=== PATIENT | male | born 1945 | race Caucasian/White ===

== ENCOUNTER → 2016-10-20 | Outpatient (REF) | payer MEDICARE, BC | LOC: M SFHCPLAZ 15:32 | PROVIDERS: ATTEND Dermatology | DX: C44.529 Squamous cell carcinoma of skin of other part of trunk (principal) | CPT/HCPCS: 11100; 11101; 88305; G0463 ==

== ENCOUNTER → 2016-11-22 | Outpatient (REF) | payer MEDICARE, BC ==
[2016-11-22 16:58] LABS: ALBUMIN 3.6 GM/DL (3.2-5.2); BILIRUBIN,TOTAL 0.4 MG/DL (0.2-1.0); CALCIUM LEVEL 8.6 MG/DL (8.8-10.2); CREATININE FOR GFR 9.48 MG/DL (0.70-1.30); GLOMERULAR FILTRATION RATE 5.9 (>49); TOTAL PROTEIN 7.2 GM/DL (6.4-8.2)
[2016-11-22 17:09] LABS: POTASSIUM SERUM 5.4 MEQ/L (3.5-5.1)
[2016-11-22 17:47] LABS: MEAN CORPUSCULAR HGB CONC 32.1 g/dl (32.0-36.5); MEAN CORPUSCULAR VOLUME 99.6 fl (80.0-96.0); RED CELL DISTRIBUTION WIDTH 15.5 % (11.5-14.5); WHITE BLOOD COUNT 6.7 K/mm3 (4.0-10.0)
== END ==
LOC: M SFHCPLAZ 11:59
PROVIDERS: ATTEND Dermatology
DX: Z51.81 Encounter for therapeutic drug level monitoring (principal); Z79.52 Long term (current) use of systemic steroids; Z79.4 Long term (current) use of insulin; Z79.899 Other long term (current) drug therapy
CPT/HCPCS: 36415; 80053; 80061; 85027; G0463

== ENCOUNTER → 2016-12-06 | Outpatient (REF) | payer MEDICARE, BC | LOC: M LAB REF 11:15 | PROVIDERS: ATTEND Surgery | DX: D04.5 Carcinoma in situ of skin of trunk (principal) ==

== ENCOUNTER → 2016-12-29 | Outpatient (REF) | payer MEDICARE, BC | LOC: M SFHCPLAZ 15:42 | PROVIDERS: ATTEND Dermatology | DX: C44.629 Squamous cell carcinoma of skin of left upper limb, including shoulder (principal) | CPT/HCPCS: 11100; 88305; G0463 ==

== ENCOUNTER → 2017-02-09 | Outpatient (REF) | payer MEDICARE, BC | LOC: M SFHCPLAZ 11:29 | PROVIDERS: ATTEND Dermatology | DX: C44.622 Squamous cell carcinoma of skin of right upper limb, including shoulder (principal); C44.629 Squamous cell carcinoma of skin of left upper limb, including shoulder | CPT/HCPCS: 11100; 11101; 88305; G0463 ==

== ENCOUNTER → 2017-02-14 | Outpatient (REF) | payer MEDICARE, BC | LOC: M LAB REF 11:15 | PROVIDERS: ATTEND Surgery | DX: L57.0 Actinic keratosis (principal) ==

== ENCOUNTER → 2017-04-13 | Outpatient (REF) | payer MEDICARE, BC | LOC: M SFHCLERA 11:31 | PROVIDERS: ATTEND Dermatology | DX: L02.414 Cutaneous abscess of left upper limb (principal); L85.9 Epidermal thickening, unspecified; C44.629 Squamous cell carcinoma of skin of left upper limb, including shoulder; C44.622 Squamous cell carcinoma of skin of right upper limb, including shoulder; L57.0 Actinic keratosis ==

== ENCOUNTER → 2017-05-08 | Outpatient (REF) | payer MEDICARE, BC | LOC: M SFHCLERA 11:14 | PROVIDERS: ATTEND Dermatology | DX: L57.0 Actinic keratosis (principal); C44.622 Squamous cell carcinoma of skin of right upper limb, including shoulder ==

== ENCOUNTER → 2017-05-11 | Outpatient (REF) | payer MEDICARE, BC | LOC: M LAB REF 13:58 | PROVIDERS: ATTEND Surgery | DX: C44.629 Squamous cell carcinoma of skin of left upper limb, including shoulder (principal); C44.622 Squamous cell carcinoma of skin of right upper limb, including shoulder ==

== ENCOUNTER → 2017-08-07 | Outpatient (REF) | payer MEDICARE, BC ==
[2017-08-07 20:47] LABS: BASO % 0.3 % (0.0-1.0); EOS # 0.2 10^3/uL (0.0-0.50); EOS % 2.6 % (0.0-3.0); IMMATURE GRANULOCYTE % 0.4 % (0-0); LYMPH # 1.7 10^3/uL (1.5-4.5); LYMPH % 23.9 % (24.0-44.0); MEAN CORPUSCULAR HEMOGLOBIN 30.1 pg (27.0-33.0); MEAN CORPUSCULAR HGB CONC 30.5 g/dl (32.0-36.5); MEAN CORPUSCULAR VOLUME 98.5 fl (80.0-96.0); MONO # 0.8 10^3/uL (0.0-0.8); MONO % 11.6 % (0.0-5.0); NEUTROPHILS # 4.3 10^3/uL (1.8-7.7); NEUTROPHILS % 61.2 % (36.0-66.0); PLATELET COUNT, AUTOMATED 195 10^3/uL (150-450); RED CELL DISTRIBUTION WIDTH 15.9 % (11.5-14.5)
[2017-08-07 20:58] LABS: ALBUMIN 3.8 GM/DL (3.2-5.2); ALBUMIN/GLOBULIN RATIO 0.97 (1.00-1.93); BILIRUBIN,DIRECT 0.1 MG/DL (0.0-0.2); BILIRUBIN,TOTAL 0.4 MG/DL (0.2-1.0); TOTAL PROTEIN 7.7 GM/DL (6.4-8.2)
== END ==
LOC: M SFHCLERA 16:35
PROVIDERS: ATTEND Dermatology
DX: Z51.81 Encounter for therapeutic drug level monitoring (principal); Z79.899 Other long term (current) drug therapy; Z79.4 Long term (current) use of insulin; Z79.52 Long term (current) use of systemic steroids; E78.00 Pure hypercholesterolemia, unspecified; Z85.828 Personal history of other malignant neoplasm of skin
CPT/HCPCS: 80061; 80076; 85025; G0463

== ENCOUNTER → 2017-11-06 | Outpatient (REF) | payer MEDICARE, BC | LOC: M SFHCLERA 12:33 | DX: C44.622 Squamous cell carcinoma of skin of right upper limb, including shoulder (principal); D04 Carcinoma in situ of skin | CPT/HCPCS: 88305 ==

== ENCOUNTER → 2017-12-14 | Outpatient (REF) | payer MEDICARE, BC | LOC: M SFHCLERA 08:59 | DX: L85.9 Epidermal thickening, unspecified (principal) | CPT/HCPCS: 88305 ==

== ENCOUNTER → 2018-01-04 | Outpatient (REF) | payer MEDICARE, BC | LOC: M SFHCLERA 09:22 | DX: L82.0 Inflamed seborrheic keratosis (principal) | CPT/HCPCS: 88305 ==

== ENCOUNTER → 2018-03-15 | Outpatient (REF) | payer MEDICARE, BC | LOC: M SFHCLERA 11:47 | DX: L57.0 Actinic keratosis (principal); C44.622 Squamous cell carcinoma of skin of right upper limb, including shoulder; D04.61 Carcinoma in situ of skin of right upper limb, including shoulder | CPT/HCPCS: 88305 ==

== ENCOUNTER → 2018-07-05 | Outpatient (REF) | payer MEDICARE, BC | LOC: M SFHCLERA 09:14 | DX: D23.61 Other benign neoplasm of skin of right upper limb, including shoulder (principal) | CPT/HCPCS: 88305 ==

== ENCOUNTER → 2018-09-12 | Outpatient (REF) | payer MEDICARE, BC ==
[2018-09-12 16:54] LABS: BASO % 0.3 % (0.0-1.0); EOS # 0.1 10^3/uL (0.0-0.50); EOS % 1.5 % (0.0-3.0); HEMOGLOBIN 10.2 g/dl (13.5-17.5); IMMATURE GRANULOCYTE % 0.3 % (0-3.0); LYMPH % 16.1 % (24.0-44.0); MEAN CORPUSCULAR HEMOGLOBIN 29.2 pg (27.0-33.0); MEAN CORPUSCULAR HGB CONC 30.9 g/dl (32.0-36.5); MEAN CORPUSCULAR VOLUME 94.6 fl (80.0-96.0); MONO # 0.6 10^3/uL (0.0-0.8); MONO % 9.9 % (0.0-5.0); NEUTROPHILS # 4.7 10^3/uL (1.8-7.7); NEUTROPHILS % 71.9 % (36.0-66.0); PLATELET COUNT, AUTOMATED 182 10^3/uL (150-450); RED BLOOD COUNT 3.49 10^6/uL (4.30-6.10); RED CELL DISTRIBUTION WIDTH 15.4 % (11.5-14.5); WHITE BLOOD COUNT 6.5 10^3/uL (4.0-10.0)
[2018-09-12 16:57] LABS: ALBUMIN 3.2 GM/DL (3.2-5.2); ALBUMIN/GLOBULIN RATIO 0.91 (1.00-1.93); ALKALINE PHOSPHATASE 97 U/L (45-117); ALT/SGPT 15 U/L (12-78); ANION GAP 5 MEQ/L (8-16); AST/SGOT 17 U/L (7-37); BILIRUBIN,TOTAL 0.5 MG/DL (0.2-1.0); BLOOD UREA NITROGEN 22 MG/DL (7-18); CARBON DIOXIDE LEVEL 36 MEQ/L (21-32); CHLORIDE LEVEL 94 MEQ/L (98-107); CHOLESTEROL LEVEL 98 MG/DL (<200); CHOLESTEROL RISK RATIO 3.769 (<5); CREATININE FOR GFR 4.96 MG/DL (0.70-1.30); GLOMERULAR FILTRATION RATE 12.4 (>42); GLUCOSE, FASTING 261 MG/DL (70-100); HDL CHOLESTEROL 26 MG/DL (>40); LDL CHOLESTEROL 29 MG/DL (<100); NON-HDL-C 72 MG/DL; POTASSIUM SERUM 4.3 MEQ/L (3.5-5.1); SODIUM LEVEL 135 MEQ/L (136-145); TOTAL PROTEIN 6.7 GM/DL (6.4-8.2); TRIGLYCERIDES LEVEL 217 MG/DL (<150)
== END ==
LOC: M SFHCLERA 10:52
DX: Z51.81 Encounter for therapeutic drug level monitoring (principal); Z79.899 Other long term (current) drug therapy
CPT/HCPCS: 80053

== ENCOUNTER → 2018-09-12 | Outpatient (REF) | payer MEDICARE, BC | LOC: M LAB REF 19:03 | DX: C44.529 Squamous cell carcinoma of skin of other part of trunk (principal); C44.629 Squamous cell carcinoma of skin of left upper limb, including shoulder; E66.9 Obesity, unspecified; Z68.32 Body mass index [BMI] 32.0-32.9, adult | CPT/HCPCS: 80053; 88305 ==

== ENCOUNTER → 2018-11-14 | Outpatient (REF) | payer MEDICARE, BC | LOC: M SFHCLERA 09:05 | PROVIDERS: ATTEND Dermatology | DX: C44.622 Squamous cell carcinoma of skin of right upper limb, including shoulder (principal); L57.0 Actinic keratosis; D23.61 Other benign neoplasm of skin of right upper limb, including shoulder; L85.8 Other specified epidermal thickening; C44.629 Squamous cell carcinoma of skin of left upper limb, including shoulder; D04.62 Carcinoma in situ of skin of left upper limb, including shoulder | CPT/HCPCS: 11102; 88305; G0463 ==

== ENCOUNTER → 2018-12-13 | Outpatient (REF) | payer MEDICARE, BC | LOC: M SFHCPLAZ 09:19 | PROVIDERS: ATTEND Dermatology | DX: C44.622 Squamous cell carcinoma of skin of right upper limb, including shoulder (principal) ==

== ENCOUNTER → 2019-02-28 | Outpatient (REF) | payer MEDICARE, BC ==
[2019-02-28 13:44] LABS: CHOLESTEROL RISK RATIO 3.964 (<5)
== END ==
LOC: M SFHCPLAZ 11:01
PROVIDERS: ATTEND Dermatology
DX: Z51.81 Encounter for therapeutic drug level monitoring (principal)

== ENCOUNTER → 2019-07-04 | Outpatient (REF) | payer MEDICARE, BC ==
[2019-07-04 13:46] LABS: ALBUMIN 2.9 GM/DL (3.2-5.2); BILIRUBIN,DIRECT 0.2 MG/DL (0.0-0.2); BILIRUBIN,TOTAL 0.7 MG/DL (0.2-1.0); CHOLESTEROL RISK RATIO 3.615 (<5); TOTAL PROTEIN 6.9 GM/DL (6.4-8.2)
== END ==
LOC: M SFHCPLAZ 10:39
PROVIDERS: ATTEND Dermatology
DX: Z51.81 Encounter for therapeutic drug level monitoring (principal); Z79.899 Other long term (current) drug therapy

== ENCOUNTER → 2020-07-07 | Outpatient (REF) | payer MEDICARE, BC | LOC: M LAB REF 18:55 | PROVIDERS: ATTEND Dermatology | DX: C44.622 Squamous cell carcinoma of skin of right upper limb, including shoulder (principal); D04.62 Carcinoma in situ of skin of left upper limb, including shoulder; Z51.81 Encounter for therapeutic drug level monitoring; Z79.899 Other long term (current) drug therapy ==

== ENCOUNTER → 2020-07-07 | Outpatient (CLI) | payer MEDICARE, BC ==
[2020-07-07 18:08] LABS: HEMATOCRIT 29.5 % (42.0-52.0); HEMOGLOBIN 8.7 g/dl (13.5-17.5); MEAN CORPUSCULAR HEMOGLOBIN 30.2 pg (27.0-33.0); MEAN CORPUSCULAR HGB CONC 29.5 g/dl (32.0-36.5); MEAN CORPUSCULAR VOLUME 102.4 fl (80.0-96.0); PLATELET COUNT, AUTOMATED 117 10^3/uL (150-450); RED BLOOD COUNT 2.88 10^6/uL (4.30-6.10); WHITE BLOOD COUNT 14.6 10^3/uL (4.0-10.0)
[2020-07-07 19:33] LABS: CHOLESTEROL RISK RATIO 1.852 (<5)
== END ==
LOC: M LAB 17:19
PROVIDERS: ATTEND Dermatology
DX: Z51.81 Encounter for therapeutic drug level monitoring (principal); Z79.899 Other long term (current) drug therapy